=== PATIENT | female | born 1980 | race Caucasian/White ===

== ENCOUNTER → 2023-05-09 10:43 | Outpatient (REF) | payer OTHER, SELFPAY | LOC: RAD 10:43 | PROVIDERS: ATTENDING PHYSICIAN Physician Assistant Medical | DX: R10.2 Pelvic and perineal pain (principal); R10.31 Right lower quadrant pain | CPT/HCPCS: 76700; 76830 ==

== ENCOUNTER → 2023-05-16 10:33 | Outpatient (REF) | payer OTHER, SELFPAY | LOC: HWRAD 10:33 | PROVIDERS: ATTENDING PHYSICIAN Physician Assistant Medical | DX: R10.84 Generalized abdominal pain (principal); R10.2 Pelvic and perineal pain | CPT/HCPCS: 74177; Q9967 ==

== ENCOUNTER → 2023-05-28 10:31 | Outpatient (REF) | payer OTHER, SELFPAY | LOC: HWWDC 10:31 | PROVIDERS: ATTENDING PHYSICIAN Nurse Practitioner Family; FAMILY PHYSICIAN Nurse Practitioner Family | DX: Z12.31 Encounter for screening mammogram for malignant neoplasm of breast (principal) | CPT/HCPCS: 77063; 77067 ==

== ENCOUNTER → 2023-05-29 12:50 | Outpatient (REF) | payer OTHER, SELFPAY | LOC: DHCBC HW 12:50 | PROVIDERS: ATTENDING PHYSICIAN Internal Medicine Cardiovascular Disease; FAMILY PHYSICIAN Physician Assistant Medical | DX: I07.1 Rheumatic tricuspid insufficiency (principal); I37.1 Nonrheumatic pulmonary valve insufficiency | CPT/HCPCS: 93306 ==

== ENCOUNTER → 2023-06-01 09:59 | Outpatient (REF) | payer OTHER, SELFPAY | LOC: HWRAD 09:59 | PROVIDERS: ATTENDING PHYSICIAN Physician Assistant Medical | DX: J98.11 Atelectasis (principal) | CPT/HCPCS: 71260; Q9967 ==

== ENCOUNTER → 2023-07-24 06:23 | Day surgery (SDC) | payer OTHER, SELFPAY | LOC: GI 06:23 | PROVIDERS: ATTENDING PHYSICIAN Internal Medicine Gastroenterology | DX: R10.31 Right lower quadrant pain (principal); R19.4 Change in bowel habit; D12.4 Benign neoplasm of descending colon | CPT/HCPCS: 45385; 88305 ==

== ENCOUNTER 2024-01-02 13:27 | Emergency (ER) | payer OTHER, SELFPAY ==
[2024-01-02 13:34] VITALS: BP 157/100
[2024-01-02 13:52] LABS: % Basophils 0.4 % (0-2); % Eosinophils 0.9 % (0-6); % Immature Granulocytes 0.2 % (0-0.5); % Monocytes 4.9 % (1.7-9.3); % Neutrophils 70.6 % (42.2-75.2); Absolute Eosinophils 0.1 10^3/uL (0-0.7); Absolute Lymphocytes 2.1 10^3/uL (1.2-3.4); Absolute Monocytes 0.4 10^3/uL (0.1-0.6); Absolute Neutrophils 6.3 10^3/uL (1.4-6.5); Hematocrit 41.2 % (37.0-47.0); Hemoglobin 13.7 g/dL (12.0-16.0); Mean Corp Hgb Conc. 33.3 g/dL (33.0-37.0); Mean Corpuscular Hgb 32.5 pg (27.0-31.0); Mean Corpuscular Volume 97.9 fL (81.0-99.0); Mean Platelet Volume 9.1 fL (7.4-10.4); Nucleated Red Blood Cells % 0 %; Platelet Count 297 10^3/uL (130-400); Red Blood Cell Count 4.21 10^6/uL (4.20-5.40); Red Cell Dist. Width 13.2 % (11.5-14.5); White Blood Cell Count 8.9 10^3/uL (4.8-10.8)
[2024-01-02 14:07] LABS: HCG, Serum Qualitative Screen Negative
[2024-01-02 14:12] LABS: ALT (SGPT) 25 U/L (0-35); AST (SGOT) 33 U/L (14-36); Albumin 4.7 g/dl (3.5-5.0); Alkaline Phosphatase 45 U/L (38-126); Blood Urea Nitrogen 17 mg/dl (7-17); Calcium 9.8 mg/dl (8.4-10.2); Carbon Dioxide 26 mmol/L (22-30); Chloride 103 mmol/L (98-107); Glucose 94 mg/dl (70-99); Potassium 4.6 mmol/L (3.5-5.1); Sodium 142 mmol/L (135-145); Total Bilirubin 0.7 mg/dl (0.2-1.3); Total Protein 7.2 g/dl (6.3-8.2); eGFR > 60.00
--- NOTE | 2024-01-02 16:39 | ED.GENMED ---
History of Present Illness
General
Chief Complaint: Vaginal Bleeding
Source: patient
Exam Limitations: none
Time Seen by Provider: 01/02/24 15:53
Nursing documentation reviewed up to this point in time: agreed with
History of Present Illness
History of Present Illness:
pt is a 43 y/o F
h/o fibroids
no chronic medical problems
says she had irregular menstrual cycle; got normal on 10/21 and had 6 days of bleding with 1 day of heavy bleeding with a few clots like normal
and then didn't get another period until 12/15
had her normal but maybe a ilttle heavier but not by much
and started again 12/27 with bleeding with larger clots
today she was using tampon every2 hours and called her [facility] to ask what to do and they recommended she come
she has not really had any symptoms other than the bleeding
since arrival it has slowed
she is not concerned about
Past History
Past History
ED Past Medical History: None
ED Past Surgical History: Negative Appendectomy, Cardiac, Cholecystectomy, or Gynecological
Social History
Tobacco: Non-smoker
Alcohol: Occasional
Drug: None
Personal:
Living: with family
Employment: Employed
Family History
Family History: Hypertension
Review of Systems
Review of Systems
Allergies reviewed?: Yes
All Other Systems: Not applicable
Phy Exam
Physical Exam
Physical Exam:
GENERAL: Alert , in no apparent distress
CARDIAC: Regular rate and rhythm .
LUNGS: Clear breath sounds bilaterally, no acute respiratory distress, no wheezes/rales/rhonchi
ABDOMEN: Soft, without focal tenderness, no r/g, no cvat, normal bowel sounds
gu: no external bleeding
internal minimal bleeding, no tendrness, no clots, no ovarian tenderness;
no cmt
NEUROLOGICAL: Alert and oriented, no focal neuro deficits
SKIN: Warm and dry, skin intact.
PSYCH: Normal and appropriate interaction.
Course
Orders/Labs/Results
Orders:
Orders
01/02/24 13:37
Test Result ONCE
01/02/24 13:43
Complete Blood Count/With Diff Urgent
Comprehensive Metabolic Panel Urgent
HCG, Serum Qualitative Screen Urgent
Abnormal Lab Results
01/02/24
13:43
[facility] 32.5 H pg
(27.0-31.0)
01/02/24 13:43
01/02/24 13:43
Vital Signs
Initial and Last Documented VS:
Initial Vital Signs
Temp Pulse Resp BP Pulse Ox
98.5 F 78 18 157/100 98
01/02/24 13:34 01/02/24 13:34 01/02/24 13:34 01/02/24 13:34 01/02/24 13:34
Last Documented Vital Signs
Temp Pulse Resp BP Pulse Ox
98.5 F 78 18 157/100 98
01/02/24 13:34 01/02/24 13:34 01/02/24 13:34 01/02/24 13:34 01/02/24 13:34
MDM/Problems Addressed
Differential Diagnosis Includes:
DUB, fibroids
MDM/Problems Addressed:
43 y/o F
no chronic medical problems
msised perior last month and now has had 2 periods this month with clots
she has no lightheadedness
the size of the clots and the frequency of changing tampons are what brought her here
she has no bleeding on exam here and stable vitals
her previous US show fibroids
hcg neg
discussed provera but she would prefer to hold off
outpatient f/u wiht gyne encouraged.
*Critical Care Note
Total Time (30-74mins, 75-104mins- exclusive of procedures): Not Applicable
ED Attending Note
-
Portions of this chart may have been created with voice recognition software.� Occasional wrong word or��sound alike� substitutions may have occurred due to the inherent limitations of voice recognition software.
Discharge Plan
Departure
Patient Disposition: Home (Routine Discharge)
Date of Disposition: 01/02/24
Time of Disposition: 16:39
Patient with high blood pressure during this ER visit?: No
Condition: Fair
Covid-19: Not Applicable
Discharge Problem:
DUB (dysfunctional uterine bleeding)
Instructions: Heavy Periods (DC)
Prescriptions:
No Action
ibuprofen 200 MG tablet
200 mg PO Q4HPRN PRN (Reason: pain)
ibuprofen 600 MG tablet
600 mg PO Q6H Qty: 30 0RF
azithromycin [Zithromax] 500 MG tablet
500 mg PO DAILY Qty: 5 0RF
Activity Restrictions/Additional Instructions:
WE ARE NOT SURE THE CAUSE OF YOUR HEAVY BLEEDING
YOUR BLOOD WORK WAS REASSURING
YOU HAVE HISTORY OF FIBROIDS SO THEY CAN CAUSE HEAVIER BLEEDING
FOLLOW UP WITH YOUR [facility] DOCTOR NEXT WEEK
RETURN FOR:
SOAKING THROUGH PAD OR TAMPON OVER 1 HOUR FOR 2 HOURS IN A ROW OR MORE
OR ANY CONCERNS.
Interventions
Interventions:
*Risk Screen - Suicide Last Done: 01/02/24 13:34
*General Assessment Last Done: 01/02/24 13:34
*Neglect/Abuse Screening Last Done: 01/02/24 13:34
*ED COVID-19 Vaccine History Last Done: 01/02/24 13:34
ED-Female Genitourinary Assessment Last Done: 01/02/24 16:41
Discharge Date and Time
Print Language: BELIZEAN
[2024-01-02 16:41] VITALS: BP 132/82
== END 2024-01-02 16:43 | disposition home or self-care (01) ==
LOC: EMR 13:27
PROVIDERS: EMERGENCY PHYSICIAN Emergency Medicine; FAMILY PHYSICIAN Physician Assistant Medical
DX: N93.8 Other specified abnormal uterine and vaginal bleeding (principal); Z87.42 Personal history of other diseases of the female genital tract
CPT/HCPCS: 99283; 80053; 84703; 85025

== ENCOUNTER → 2024-01-23 07:46 | Outpatient (REF) | payer OTHER, SELFPAY | LOC: HWRAD 07:46 | PROVIDERS: ATTENDING PHYSICIAN Student in an Organized Health Care Education/Training Program; FAMILY PHYSICIAN Physician Assistant Medical | DX: N93.9 Abnormal uterine and vaginal bleeding, unspecified (principal) | CPT/HCPCS: 76830; 76856 ==

== ENCOUNTER 2024-02-19 06:15 | Day surgery (SDC) | payer OTHER, SELFPAY ==
[2024-02-11 13:51] VITALS: BMI 25.5
[2024-02-11 14:30] LABS: % Basophils 1.2 % (0-2); % Eosinophils 11.9 % (0-6); % Immature Granulocytes 0.3 % (0-0.5); % Lymphocytes 21.8 % (20.5-51.1); % Monocytes 9.9 % (1.7-9.3); % Neutrophils 54.9 % (42.2-75.2); Absolute Basophils 0.1 10^3/uL (0-0.2); Absolute Eosinophils 0.8 10^3/uL (0-0.7); Absolute Lymphocytes 1.4 10^3/uL (1.2-3.4); Absolute Monocytes 0.6 10^3/uL (0.1-0.6); Absolute Neutrophils 3.6 10^3/uL (1.4-6.5); Hematocrit 40.9 % (37.0-47.0); Hemoglobin 13.3 g/dL (12.0-16.0); Mean Corp Hgb Conc. 32.5 g/dL (33.0-37.0); Mean Corpuscular Hgb 31.1 pg (27.0-31.0); Mean Corpuscular Volume 95.8 fL (81.0-99.0); Mean Platelet Volume 9.7 fL (7.4-10.4); Nucleated Red Blood Cells % 0 %; Platelet Count 228 10^3/uL (130-400); Red Blood Cell Count 4.27 10^6/uL (4.20-5.40); Red Cell Dist. Width 12.9 % (11.5-14.5); White Blood Cell Count 6.5 10^3/uL (4.8-10.8)
[2024-02-11 15:12] LABS: HCG, Urine Qualitative Screen Negative
--- NOTE | 2024-02-18 09:20 | HPS.HSE ---
Family Physician
-
Family Physician: Chuck Santo
Chief Complaint
-
heavy periods
History of Present Illness
Patient is a 43yo presents for hysteroscopy D&C with Myosure for abnormal uterine bleeding with heavy periods. EMB was attempted in office but unable to perform secondary to cervical stenosis. Recommend hysteroscopy D&C for endometrial
sampling.
Pelvic US 01/23/2024: UT 8.7x4.8x6.5cm, 2 small fibroids- anterior right uterine body 2.8x1.9x2.5cm and 1.0x0.8x1.1cm near fundus
PMHx: denies
Meds: denies
Surghx: D&E, breast cyst removed
NKDA
Socialhx: occ etoh, denies tobacco or illicit drug use
Famhx: mom w/ fibroids, maternal grandfather- brain cancer, paternal uncle intestinal cancer
OBHx: , FT SVDx1
Gynhx: denies hx abnormal Pap or STDs
Medical History
Past Medical History
Past Medical History: Reports None
Past Surgical History: Reports Gynocological
Social History
Tobacco: Non-smoker
Alcohol: Occasional
Drug: None
Family History
Family History: Not pertinent
Allergies / Home Medications
Allergies reflects when Allergies were last updated in [facility].
Home Medications with original date entered in [facility]
Allergy/Medication List:
NKDA
Meds: denies
Review of Systems
-
A 12 point ROS was completed and negative except as noted: Yes
Physical Exam
Physical Exam
General: Well Developed and Well Nourished
HEENT: NormoCephalic
Respiratory: Non Labored Respirations
Cardiac: Regular Rhythm
GI: Soft and Non Tender
Skin: Warm and Dry
Neuro: Awake and Alert
Psych: Calm
Laboratory Results
-
02/11/24 13:46
Impression/Plan
-
IMPRESSION:
Patient is a 43yo who presents with abnormal uterine bleeding
PLAN:
- Unable to perform EMB in the office secondary to cervical stenosis. Recommend hysteroscopy D&C in the OR for endometrial sampling. Risks, benefits and alternatives including bleeding, infection, damage to surrounding structures and need for
further operations discussed. She was consented for a blood transfusion in case of emergency. Risks of blood transfusion discussed.
- Cytotec 200mcg to be taken the night before and the morning of the procedure. Rx sent to pharmacy
[2024-02-19] VITALS (8 sets, daily range): BP systolic 108–130; BP diastolic 71–85; BMI 25.5
[2024-02-19] MEDS: NORMOSOL-R/PLASMALYTE-A 1000 IV (13:11)
--- NOTE | 2024-02-19 17:08 | OR.RPT ---
Operative Report
Operative Report
Preop diagnosis
- Abnormal uterine bleeding
- Cervical stenosis
Postop diagnosis
- Abnormal uterine bleeding
- Cervical stenosis
- Cervical polyp
Procedure
- Hysteroscopy, dilation and curettage
Surgeon: Codey
Anesthesia: General
EBL 10cc
Complications: none
Findings
- Normal appearing external genitalia
- <0.5cm cervical polyp noted in cervical os
- Bimanual exam with normal sized anteverted uterus, no adnexal masses
- Difficulty dilating cervix secondary to cervical stenosis. Unable to pass hysteroscope past internal cervical os. Endometrial curettings were able to be obtained.
Pathology: endometrial curettings, cervical polyp
Indication:
Patient is a 43yo presents for hysteroscopy D&C with Myosure for abnormal uterine bleeding with heavy periods. EMB was attempted in office but unable to perform secondary to cervical stenosis. Hysteroscopy D&C in the operating room was
recommended for endometrial sampling. She was prescribed Cytotec to take the evening before and morning of the surgery. Risks, benefits and alternatives to the procedure were discussed and all questions answered prior to proceeding. Consents were in
the chart.
Procedure:
Patient was taken to the operating room and placed under general anesthesia. She was placed in the dorsal lithotomy position with Juancarlos type stirrups. She was prepped and draped in the normal sterile fashion. Bimanual exam revealed the
aforementioned findings. The bladder was drained with a straight catheter yielding 200cc of clear urine. A Bailey retractor was placed in the anterior portion of the vagina and in the posterior aspect of the vagina revealing good visualization the
cervix. The anterior lip of the cervix was grasped with a Tenaculum. Cervical polyp noted. Polyp was grasped with a polyp forceps and removed. Polyp was sent to pathology for evaluation. Cervical dilators attempted to be used to dilate cervix, but
there was stenosis of the internal cervical os. Small plastic dilators were used and cervix was sequentially dilated. Attempt was made to pass the hysteroscope, but the hysteroscope was not able to pass through the internal cervical os. There was
difficulty dilating the cervix and it was not able to be dilated any further to accommodate the hysteroscope. Hysteroscope was removed. A size 0 curette was introduced through the cervix. The uterus was curetted in a clockwise fashion until uterine
cry was felt in all quadrants. Endometrial curettings were sent to pathology. The tenaculum was removed from the cervix and good hemostasis noted. All instruments were removed from the vagina.
The patient tolerated the procedure well. All sponge and instrument counts were correct x2. She was taken to PACU in stable
== END 2024-02-19 16:55 | disposition home or self-care (01) ==
LOC: SDS 06:15
PROVIDERS: ATTENDING PHYSICIAN Student in an Organized Health Care Education/Training Program; FAMILY PHYSICIAN Physician Assistant Medical
DX: N84.1 Polyp of cervix uteri (principal); N85.8 Other specified noninflammatory disorders of uterus; N88.2 Stricture and stenosis of cervix uteri; N93.8 Other specified abnormal uterine and vaginal bleeding
CPT/HCPCS: 58558; 88305; 36415; 81025; 85025; 86850; 86900; 86901

== ENCOUNTER → 2024-10-14 13:57 | Outpatient (REF) | payer OTHER, SELFPAY | LOC: WDC 13:57 | PROVIDERS: ATTENDING PHYSICIAN Student in an Organized Health Care Education/Training Program | DX: R92.2 Inconclusive mammogram (principal) | CPT/HCPCS: 76641 ==